=== PATIENT | female | born 1985 | race Caucasian/White ===

== ENCOUNTER 2019-05-23 15:08 | Inpatient (IN) | payer OTHER ==
[2019-05-23 16:01] LABS: Urine Appearance Clear; Urine Bilirubin Negative (Negative); Urine Blood Negative (Negative); Urine Color Yellow; Urine Glucose Negative (Negative); Urine Ketones Negative (Negative); Urine Nitrite Negative (Negative); Urine Protein Negative (Negative); Urine Specific Gravity 1.025 (1.010-1.030); Urine Urobilinogen Negative (Negative)
[2019-05-23 16:14] LABS: ABS Basophils 0.1 10^3/ul (0-0.2); ABS Eosinophils 0.2 10^3/ul (0-0.6); ABS Lymphocytes 1.7 10^3/ul (1.0-4.8); ABS Monocytes 0.7 10^3/ul (0-0.8); ABS Neutrophils 7.8 10^3/ul (1.5-7.7); Eosinophil % 2.2 %; Hematocrit 39 % (35-47); Hemoglobin 13.2 g/dL (12.0-16.0); Lymphocyte % 16.6 %; Mean Corpuscular HGB Conc 34 g/dL (31-36); Mean Corpuscular Hemoglobin 30 pg (27-31); Mean Corpuscular Volume 88 fL (80-97); Mean Platelet Volume 9.1 fL (7.4-10.4); Platelet Count 222 10^3/uL (150-450); Red Blood Count 4.46 10^6 /uL (3.70-4.87); Red Cell Distribution Width 13 % (10-15); White Blood Count 10.5 10^3/uL (3.5-10.8)
[2019-05-23 16:41] LABS: TSH (Thyroid Stimulating Horm) 1.94 mcIU/mL (0.34-5.60)
[2019-05-23 16:54] LABS: Urine Benzodiazepine Screen None Detected (None Detect); Urine Opiates Screen None Detected (None Detect)
[2019-05-23 16:57] LABS: ALT 12 U/L (7-52); AST 14 U/L (13-39); Albumin/Globulin Ratio 1.4 (1-3); Alkaline Phosphatase 31 U/L (34-104); Anion Gap 8 mmol/L (2-11); BUN/Creatinine Ratio 22.9 (8-20); Blood Urea Nitrogen 16 mg/dL (6-24); CO2 Carbon Dioxide 22 mmol/L (22-32); Calcium 8.7 mg/dL (8.6-10.3); Chloride 106 mmol/L (101-111); EGFR African American 116.6 (>60); EGFR Non-African American 96.4 (>60); Globulin 2.9 g/dL (2-4); Glucose 84 mg/dL (70-100); Potassium 3.8 mmol/L (3.5-5.0); Sodium 136 mmol/L (135-145); Total Protein 6.9 g/dL (6.4-8.9)
[2019-05-23 17:00] LABS: Acetaminophen < 15 mcg/mL; Alcohol < 10 mg/dL (<10); Salicylate < 2.50 mg/dL (<30)
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
--- NOTE | 2019-05-23 17:50 | ED ---
Course/Dx - Course Course Of Treatment: This patient is evaluated for suicidal ideation with attempt to date with a rope being placed around her neck. She states she did not have anything to tie it to so did not complete the process. On arrival into the ED, the patient states she feels nonsuicidal at this time even though she does endorse depression. She states she feels safe in the ED. Patient is placed on observation, every 15 and is immediately cleared for mental health. after MHE patient will be admitted by dr preciado voluntarily. - Diagnoses Provider Diagnoses: Depression Discharge ED - Sign-Out/Discharge Documenting (check all that apply): Patient Departure, Receiving Sign-Out Receiving patient FROM: Alondra Gibson - Discharge Plan Condition: Stable [place] [place]: No Primary Care Phys,NOPCP [Primary Care Provider] - - Billing Disposition and Condition Condition: STABLE [place] [facility] [place]
[2019-05-23] MEDS ORDERED: Al Hydrox/Mg Hydrox/Simet LIQ* 30 ML UDC PO PRN (20:52)
[2019-05-24] MEDS: Vitamin THERAPEUTIC TAB PO SCH (10:14)
[2019-05-24] MEDS ORDERED: Propranolol TAB* 10 MG PO PRN (14:16)
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
[2019-05-24] MEDS: Escitalopram * 10 MG TAB PO SCH (21:59)
[2019-05-25 08:29] LABS: HDL Cholesterol 46.8 mg/dL
[2019-05-25] MEDS ORDERED: Influenza VAC *QUAD* 2019-20* 0.5 ML SYRINGE IM ONE (09:00)
[2019-05-25] MEDS: Vitamin THERAPEUTIC TAB PO SCH (09:20)
[2019-05-25] MEDS: Escitalopram * 10 MG TAB PO SCH (19:57)
[2019-05-26] MEDS ORDERED: hydrOXYzine HCL TAB* 50 MG ONE (01:27)
[2019-05-26] MEDS ORDERED: hydrOXYzine HCL TAB* 50 MG PO ONE (02:00)
[2019-05-26] MEDS: Vitamin THERAPEUTIC TAB PO SCH (10:58)
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
[2019-05-26] MEDS: Gabapentin CAP(*) 300 MG PO PRN (20:43)
[2019-05-26] MEDS: Escitalopram * 20 MG TABLET PO SCH (20:45)
[2019-05-26] MEDS: Prazosin CAP* 1 MG PO SCH (20:46)
[2019-05-27] MEDS: Cholecalciferol TAB* 1000 UNITS PO SCH (09:39)
[2019-05-27] MEDS: Vitamin THERAPEUTIC TAB PO SCH (09:39)
[2019-05-27] MEDS: Gabapentin CAP(*) 300 MG PO PRN (12:03)
[2019-05-27] MEDS: Acetaminophen TAB* 325 MG PO PRN (13:44)
[2019-05-27] MEDS ORDERED: Propranolol TAB* 40 MG PO PRN (17:18)
[2019-05-27] MEDS: Escitalopram * 20 MG TABLET PO SCH (21:40)
[2019-05-27] MEDS: Prazosin CAP* 1 MG PO SCH (21:44)
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
[2019-05-28] MEDS: Cholecalciferol TAB* 1000 UNITS PO SCH (08:48)
[2019-05-28] MEDS: Acetaminophen TAB* 325 MG PO PRN (08:49)
[2019-05-28] MEDS: Vitamin THERAPEUTIC TAB PO SCH (08:49)
--- NOTE | 2019-05-28 14:34 | PN ---
Subjective - Subjective Date of Service: 05/28/19 Service Type: 22159 Hosp care 15 min low complexity Subjective: Marietta is seen in weekend coverage for NPP, Della Guzmán. The patient is sitting on her bed with a stuffed animal talking to staff. She reports that she has had a resumption of suicide. "I wouldn't do anything here in the hospital. I don't want to be on a 1:1 again. I'm thinking of what I could do after I leave." I discussed various coping strategies and possible prn meds but she dismisses these, saying she's tried them before. She does commit to telling staff should she have thoughts, plans or intentions to harm herself here on the unit. Objective - General Observations Appearance: Well Groomed Appears Stated Age: No Stature: Overweight Posture: Slumped Eye Contact: Avoidant Behavior/Activity: Slowed - Interaction Observations Attitude Towards Examiner: Evasive Stated Mood: Dysphoric Affect: Restricted Speech Pattern/Tone: Delayed, Quiet Volume Thought Process: Coherent Thought Content: Preoccupation/Ruminations, Self-Deprecatory Thought Process: Lethality: Passive Wish Hallucination Type: None Delusion Type: None - Cognitive Function Orientation: A&O x 4 Level of Consciousness: Awake Cognition: WNL Estimated Intelligence: Normal Insight: WNL Judgment Within Normal Limits: Yes - Medication Compliance Cooperative with Inpatient Medication Regimen: Yes - Group Participation Participates in Group Activities: Yes Assessment - Assessment Merits Inpatient Hospitalization: For Immediate Safety, For Stabilization Inpatient DSM-V Dx: F32.9 Clinical Impression: 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 She is agreeable to medication start and changes. BSU: Problem List - Patient Problems (1) Depression Current Visit: Yes Status: Acute Code(s): F32.9 - MAJOR DEPRESSIVE DISORDER , SINGLE EPISODE, UNSPECIFIED SNOMED Code(s): 23074359 Plan - Plan Treatment Plan: Name: MARIETTA ALBRECHT Birthdate: 1985 [id number] 05/26/19 We will increase the Lexapro to 20 mg as she tolerated 10 mg very well and she is highly anxious. We will start prazosin to help with nightmares and anxiety. She takes Vitamin D at home, so we will continue that here. 10/25/19 Medications are generally tolerated. We will d/c the gabapentin and hydroxyzine and reinstate propranolol at a higher dose for anxiety. 05/28/19 Patient attention-seeking and making suicidal statements about post-discharge. Continued Medication Management: Start Medication Medications: Current Medications Acetaminophen (Tylenol Tab*) 650 mg PO Q4H PRN PRN Reason: PAIN or TEMP > 101 F Last Admin: 05/28/19 08:49 Dose: 650 mg Al Hydrox/Mg Hydrox/Simethicone (Maalox Plus*) 30 ml PO Q4H PRN PRN Reason: INDIGESTION Cholecalciferol (Vitamin D Tab*) 1,000 units PO DAILY SHAYAN Last Admin: 05/28/19 08:48 Dose: 1,000 units Escitalopram Oxalate (Lexapro *) 20 mg PO BEDTIME SHAYAN Last Admin: 05/27/19 21:40 Dose: 20 mg Multivitamins (Theragran Tab*) 1 tab PO DAILY SHAYAN Last Admin: 05/28/19 08:49 Dose: 1 tab Prazosin HCl (Minipress Cap*) 2 mg PO BEDTIME SHAYAN Last Admin: 05/27/19 21:44 Dose: 2 mg Propranolol HCl (Inderal Tab*) 40 mg PO Q6H PRN PRN Reason: anxiety - Discharge Plan Discharge Plan: Inpatient Hospitalization
[2019-05-28] MEDS: Escitalopram * 20 MG TABLET PO SCH (20:27)
[2019-05-28] MEDS: Prazosin CAP* 1 MG PO SCH (20:27)
[2019-05-29] MEDS: Vitamin THERAPEUTIC TAB PO SCH (09:35)
[2019-05-29] MEDS: Cholecalciferol TAB* 1000 UNITS PO SCH (09:35)
[2019-05-29] MEDS: Escitalopram * 20 MG TABLET PO SCH (20:58)
[2019-05-29] MEDS: Prazosin CAP* 1 MG PO SCH (20:58)
[2019-05-30] MEDS: Cholecalciferol TAB* 1000 UNITS PO SCH (08:51)
[2019-05-30] MEDS: Vitamin THERAPEUTIC TAB PO SCH (08:51)
--- NOTE | 2019-05-30 15:31 | PN ---
Subjective - Subjective Date of Service: 05/30/19 Service Type: 53844 Hosp care 25 min moderate complexity Subjective: Marietta states she is more suicidal today. She cannot name emotions that go along with that thought, however. She is clearly unhappy but seems significantly less anxious than she was last week. I spoke with her along with Gunjan Rosas LMSW , and we discussed what her thought process was to get her to the suicidal ideation. She indicates that she is feeling purposeless. We had some discussion regarding activities as well as life choices that might bring her closer to having a purpose. She is engaging in significant amounts of black and white thinking. Objective - General Observations Appearance: Neat Appears Stated Age: Yes Stature: Overweight Posture: Slumped Eye Contact: Intermittent Behavior/Activity: WNL - Interaction Observations Attitude Towards Examiner: Cooperative, Evasive Stated Mood: Dysphoric Affect: Blunted Speech Pattern/Tone: Clear Thought Process: Coherent Perception: WNL Thought Content: Preoccupation/Ruminations, Self-Deprecatory Thought Process: Lethality: Passive Wish Hallucination Type: None Delusion Type: None - Cognitive Function Orientation: A&O x 4 Level of Consciousness: Awake, Alert, Appropriate Cognition: WNL Estimated Intelligence: Normal Insight: WNL Judgment Within Normal Limits: Yes Ability to Make Reasonable Decisions: Mildly Impaired - Medication Compliance Cooperative with Inpatient Medication Regimen: Yes - Group Participation Participates in Group Activities: Partial Assessment - Assessment Merits Inpatient Hospitalization: For Immediate Safety Inpatient DSM-V Dx: F32.9 Clinical Impression: 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 She is agreeable to medication start and changes. Plan - Plan Treatment Plan: Name: MARIETTA ALBRECHT Birthdate: 1985 [id number] 05/26/19 We will increase the Lexapro to 20 mg as she tolerated 10 mg very well and she is highly anxious. We will start prazosin to help with nightmares and anxiety. She takes Vitamin D at home, so we will continue that here. 05/27/19 Medications are generally tolerated. We will d/c the gabapentin and hydroxyzine and reinstate propranolol at a higher dose for anxiety. 05/28/19 Patient attention-seeking and making suicidal statements about post-discharge. 05/20/19 Marietta is being prepared for discharge tomorrow. Medications: Current Medications Acetaminophen (Tylenol Tab*) 650 mg PO Q4H PRN PRN Reason: PAIN or TEMP > 101 F Last Admin: 05/28/19 08:49 Dose: 650 mg Al Hydrox/Mg Hydrox/Simethicone (Maalox Plus*) 30 ml PO Q4H PRN PRN Reason: INDIGESTION Cholecalciferol (Vitamin D Tab*) 1,000 units PO DAILY SHAYAN Last Admin: 05/30/19 08:51 Dose: 1,000 units Escitalopram Oxalate (Lexapro *) 20 mg PO BEDTIME SHAYAN Last Admin: 05/29/19 20:58 Dose: 20 mg Multivitamins (Theragran Tab*) 1 tab PO DAILY SHAYAN Last Admin: 05/30/19 08:51 Dose: 1 tab Prazosin HCl (Minipress Cap*) 2 mg PO BEDTIME SHAYAN Last Admin: 05/29/19 20:58 Dose: 2 mg Propranolol HCl (Inderal Tab*) 40 mg PO Q6H PRN PRN Reason: anxiety - Discharge Plan Discharge Plan: Outpatient Follow Up
[2019-05-30] MEDS: Escitalopram * 20 MG TABLET PO SCH (20:46)
[2019-05-30] MEDS: Prazosin CAP* 1 MG PO SCH (20:46)
[2019-05-31] MEDS: Cholecalciferol TAB* 1000 UNITS PO SCH (09:17)
[2019-05-31] MEDS: Vitamin THERAPEUTIC TAB PO SCH (09:17)
[2019-05-31 09:20] VITALS: BP 128/69
--- NOTE | 2019-05-31 12:35 | PN ---
Progress Note - Progress Note Date of Service: 05/25/19 Note: On the evening of Thursday, May 25, at approximately 23:10, Ms. Anderson was observed by staff to be standing near the med window where she indicated "I did something stupid. There's something stuck in my bathroom door" . At that time the patient endorsed suicidal ideation and admitted she had actively made a suicide attempt. In her room staff found a pair of paper scrub pants with one leg wedged and hanging from the top corner of the sloped bathroom door. Patient stated she placed the pants around her neck but did not tie it. She was examined for ligature willis and none were observed. Vitals were within healthy parameters. Marietta was immediately placed on constant observation and the on-call psychiatrist, Dr. Olivares, was notified. Per protocol he ordered the patient's room strip-searched for contraband. She was placed in paper scrubs for safety.
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
== END 2019-05-31 18:00 | disposition home or self-care (01) | DRG 755 ==
LOC: ED 15:08 → BSU 20:50
PROVIDERS: ADMIT Psychiatry & Neurology Psychiatry; ATTEND Psychiatry & Neurology Psychiatry
DX: F43.10 Post-traumatic stress disorder, unspecified (principal); R45.851 Suicidal ideations; F33.2 Major depressive disorder, recurrent severe without psychotic features; F60.3 Borderline personality disorder; F64.9 Gender identity disorder, unspecified; Z62.810 Personal history of physical and sexual abuse in childhood; Z79.890 Hormone replacement therapy; Z88.8 Allergy status to other drugs, medicaments and biological substances; Z81.8 Family history of other mental and behavioral disorders
CPT/HCPCS: 36415; 80053; 80061; 80307; 80320; 80329; 81003; 83036; 84443; 85025; 99222; 99231; 99232; 99233; 99238; 99284; A9270-GY; G0480